=== PATIENT | male | born 1960 | race Hispanic/Latino ===

== ENCOUNTER 2017-09-01 19:56 | Emergency (ER) | payer OTHER ==
[~2017-09-01] VITALS: Ht 165.1 cm; Wt 77.0 kg
[~2017-09-01 19:56] MED LIST: BENAZEPRIL10 MG PO; GLIMEPIRIDE2 MG PO; KEFLEX500 MG PO; LOVASTATIN10 MG PO; METFORMIN1000 MG PO; PERCOCET 5/325M1 TAB PO
[2017-09-01 20:18] LABS: HEMATOCRIT 39.1 % (39.0-50.0); HEMOGLOBIN 14.1 g/dl (14.0-18.0); IMMATURE GRANULOCYTES 0.7 % (0.0-1.0); MEAN CELL VOLUME 91.6 fL CALC (80.0-100.0); MEAN CORPUSCULAR HGB CONC 36.1 g/L CALC (32.0-36.0); NEUT# 3.05 thou/uL (1.82-7.42); RED BLOOD COUNT 4.27 mill/uL (4.70-6.10); RED CELL DISTRI WIDTH 12.2 % (11.5-15.5)
[2017-09-01 20:34] LABS: ALBUMIN 4.2 g/dL (3.2-5.0); ALKALINE PHOSPHATASE 113 u/l (38-126); ANION GAP 20 (6-22 (CALC)); BILIRUBIN, TOTAL 0.7 mg/dL (0.0-1.4); BUN 14 mg/dL (9-20); BUN/CREATININE RATIO 15 (12-20 (CALC)); CALCIUM 9.3 mg/dL (8.4-10.2); CARBON DIOXIDE 22 mmol/l (22-30); CHLORIDE 104 mmol/l (95-108); CREATININE 0.9 mg/dL (0.7-1.3); ETHYL ALCOHOL 44 mg/dl (0-30); GFR > 60 ML/MIN (>=60 (CALC)); GFR FOR AFR.AMER. > 60 ML/MIN (>=60 (CALC)); GLUCOSE 315 mg/dL (75-110); POTASSIUM 3.6 mmol/l (3.5-5.1); SGOT/AST 27 u/l (17-59); SGPT/ALT 35 u/l (21-72); SODIUM 143 mmol/l (137-146); TOTAL PROTEIN 6.9 g/dL (6.3-8.2)
[2017-09-01 20:37] LABS: URINE BILIRUBIN - DIPSTICK NEGATIVE (NEGATIVE); URINE BLOOD DIPSTICK NEGATIVE (NEGATIVE); URINE COLOR YELLOW; URINE GLUCOSE - DIPSTICK >=1000 mg/dL (NEGATIVE); URINE KETONE TRACE mg/dL (NEGATIVE); URINE LEUK ESTERASE NEGATIVE (Negative); URINE NITRITE - DIPSTICK NEGATIVE (Negative); URINE PROTEIN - DIPSTICK NEGATIVE (NEG-TRACE); URINE SPECIFIC GRAVITY 1.015; URINE UROBILINOGEN - DIPSTICK 0.2 E.U./dL (0.2)
[2017-09-01 20:38] LABS: URINE CLARITY CLEAR
[2017-09-01] MEDS ORDERED: PERCOCET 5/325M1 TAB PO (23:01)
[2017-09-01 23:58] VITALS: BP 166/91
== END 2017-09-01 23:58 | disposition home or self-care (01) | DRG 605 ==
LOC: ED 19:56
PROVIDERS: Emergency Medicine
DX: S20.212A Contusion of left front wall of thorax, initial encounter (principal); R00.0 Tachycardia, unspecified; V43.62XA Car passenger injured in collision with other type car in traffic accident, initial encounter; Y92.411 Interstate highway as the place of occurrence of the external cause
CPT/HCPCS: Q9967